=== PATIENT | female | born 1990 | race Caucasian/White ===

== ENCOUNTER 2021-07-11 04:30 | Inpatient (IN) | payer MEDICAID ==
[2021-07-11] MEDS ORDERED: Sodium Chloride 0.9% 10 ML Syringe FLUSH PRN ×2 (07:48→21:30)
[2021-07-11] MEDS ORDERED: Misoprostol 50 MCG (1/2 of 100 MCG) Tab VAG ONE ×2 (08:00→12:15)
[2021-07-11 08:33] LABS: CORONAVIRUS COVID-19 NAA NEGATIVE (NEGATIVE)
[2021-07-11] MEDS ORDERED: Misoprostol 25 MCG (1/4 of 100 MCG) Tab VAG ONE (15:00)
[2021-07-11] MEDS ORDERED: fentaNYL 100 MCG/2 ML SDV IVPUSH ONE ×2 (19:24→21:01)
[2021-07-11] MEDS ORDERED: Ropivacaine 200 MG in Premix Bag 1 BAG EPIDUR SCH (21:30)
[2021-07-11] MEDS ORDERED: diphenhydrAMINE 50 MG/ML SDV IVPUSH PRN ×2 (21:30)
[2021-07-11] MEDS ORDERED: ePHEDrine 50 MG/ML SDV IVPUSH PRN (21:30)
[2021-07-11] MEDS ORDERED: Naloxone 0.4 MG/ML SDV IVPUSH PRN (21:30)
[2021-07-11] MEDS ORDERED: Ropivacaine 100 ML ONE (22:11)
[2021-07-11] MEDS: Lactated Ringers 1,000 ML IV SCH (22:15)
[2021-07-12] MEDS: Lactated Ringers 1,000 ML IV SCH (02:02)
[2021-07-12] MEDS ORDERED: Acetaminophen 325 MG Tab, 50 Tab Bulk Bottle PO PRN (04:41)
[2021-07-12] MEDS ORDERED: Ibuprofen 200 MG Tab, 24 Tab Bulk Bottle PO PRN (04:41)
[2021-07-12] MEDS ORDERED: Lanolin 100% Cream 40 GM Tube TOP ONE (04:41)
== END 2021-07-13 12:30 | disposition home or self-care (01) | DRG 805 ==
LOC: JP.OB 07:06 → OBSVTOIN 07-12 04:08 → JP.MS 07-12 08:30
PROVIDERS: ADMIT Nurse Practitioner Family; ATTEND Nurse Practitioner Family
PROC: 10E0XZZ Delivery of Products of Conception, External Approach (ICD-10-PCS; principal; 2021-07-12)
PROC: 3E0P7VZ Introduction of Hormone into Female Reproductive, Via Natural or Artificial Opening (ICD-10-PCS; 2021-07-12)
PROC: 3E0R3BZ Introduction of Anesthetic Agent into Spinal Canal, Percutaneous Approach (ICD-10-PCS; 2021-07-12)
PROC: 00HU33Z Insertion of Infusion Device into Spinal Canal, Percutaneous Approach (ICD-10-PCS; 2021-07-12)
DX: O99.334 Smoking (tobacco) complicating childbirth (principal); O41.1230 Chorioamnionitis, third trimester, not applicable or unspecified; Z37.0 Single live birth; D62 Acute posthemorrhagic anemia; F17.200 Nicotine dependence, unspecified, uncomplicated; O77.0 Labor and delivery complicated by meconium in amniotic fluid; O66.0 Obstructed labor due to shoulder dystocia; O69.2XX0 Labor and delivery complicated by other cord entanglement, with compression, not applicable or unspecified; Z20.822 Contact with and (suspected) exposure to COVID-19; O99.02 Anemia complicating childbirth; Z3A.40 40 weeks gestation of pregnancy
CPT/HCPCS: 0241U; 36415; 51702; 80305-QW; 81001; 85025; 85027; 88307; A9270-GY; J2590; J2795; J3010; J7120